=== PATIENT | female | born 1990 | race African-American/Black ===

== ENCOUNTER 2016-05-25 05:50 | Emergency (ER) | payer SELFPAY ==
[~2016-05-25] VITALS: Ht 162.6 cm; Wt 54.7 kg
[~2016-05-25 05:50] MED LIST: PRENTAB26 PO; TRAM-10 PO
[2016-05-25 05:55] VITALS: TEMP 37.3; Ht 162.6 cm; Wt 54.7 kg
[2016-05-25] MEDS ORDERED: METHYLPREDNISOLONE 125 MG VIAL IV STA (06:06)
[2016-05-25] MEDS ORDERED: FAMOTIDINE IV INJ 20 MG in DEXTROSE 5% 100ML 100 ML IV STA (06:06)
[2016-05-25] MEDS ORDERED: DiphenhydrAMINE HCL 50 MG/ML VIAL IV STA (06:06)
[2016-05-25] MEDS ORDERED: FAMOTIDINE 20MG/102 ML D5W ONE (06:28)
[2016-05-25] MEDS ORDERED: CLR10 PO (06:33)
[2016-05-25] MEDS ORDERED: SPR28 PO (06:33)
[2016-05-25] MEDS ORDERED: LANS15CA6 PO (06:33)
[2016-05-25 06:42] LABS: BASO % 0.7 %; BASO ABS # 0.05 K/uL (0-0.2); COMPLETE YES; EOS % 0.5 %; HEMATOCRIT 41.3 % (37-47); IG% 0.1 %; LYMPH % 28.8 %; LYMPH ABS # 2.13 K/uL (1.2-3.4); MEAN CELL VOLUME 92.6 fL (80-100); MEAN CORPUSCULAR HEMOGLOBIN 33.4 pg (25-34); MEAN CORPUSCULAR HGB CONC 36.1 g/dl (32-36); MEAN PLATELET VOLUME 9.6 fL (7.4-10.4); MONO % 6.8 %; NEUT % 63.1 %; PLATELET COUNT 211 K/uL (130-400); RED BLOOD COUNT 4.46 M/uL (4.2-5.4)
[2016-05-25 06:58] LABS: BUN/CREATININE RATIO 14.6 (10-20); CALCIUM 9.2 mg/dl (8.5-10.1); CREATININE 0.72 mg/dl (0.60-1.20); POTASSIUM 3.6 mmol/L (3.5-5.1)
--- NOTE | 2016-05-25 07:13 | EMERGENCY ROOM VISIT NOTE ---
History First contact with patient: 06:00 Chief Complaint: ALLERGIC REACTION Stated Complaint: SWOLLEN LIPS,ALLERGIC REACTION Nursing Triage Summary: Patient reports that she awoke with her lower lip swollen. Angioedema noted. Patient denies taking any new medications or being exposed to any new detergents, etc. Patient also reports sore throat x 2 days. Denies difficulty swallowing or SOB. History of Present Illness The patient is a 25 year old female who presents to the Emergency Room with complaints of left-sided lower lip swelling. The patient reports that she woke up this morning and noticed swelling of the left side of her lower lip. She denies any recent swelling. She states that she has had a sore throat intermittently over the past 2 days. The patient takes tramadol daily. She also takes a PPI and Claritin. She has taken Aleve intermittently recently, but denies any other anti-inflammatory use. She denies any swelling of the tongue or sensation of swelling in the throat. She denies any difficulty swallowing or difficulty breathing. She denies any rashes. She denies any history of similar symptoms. No new exposures to detergents, medications or other environmental exposures. Review of Systems A complete 10-point Review of Systems was discussed with the patient, with pertinent positives and negatives listed in the History of Present Illness. All remaining Review of Systems questions can be considered negative unless otherwise specified. Past Medical/Surgical History Medical Problems: (1) Fibromyalgia (2) Scoliosis Social History Smoking Status: Never Smoker Alcohol Use: occasionally Marital Status: in relationship Occupation Status: [employer] student Current/Historical Medications Scheduled Ethinyl Estrad/Norgestimate (Sprintec 28), 1 TAB PO DAILY Lansoprazole (Prevacid), 15 MG PO DAILY Scheduled PRN Loratadine (Claritin), 10 MG PO DAILY PRN for ALLERGY SX Tramadol (Ultram), 50 MG PO Q6 PRN for Pain Allergies Coded Allergies: Penicillins (Verified Allergy, Mild, HIVES, 05/25/16) Physical Exam Vital Signs Date Time Temp Pulse Resp B/P Pulse Ox O2 Delivery O2 Flow Rate FiO2 05/25/16 05:55 37.3 89 20 128/72 94 Room Air Physical Exam VITALS: Vitals are noted on the nurse's note and reviewed by myself. Vital signs stable. GENERAL: This is a 25-year-old female, in no acute distress, nondiaphoretic, well-developed well-nourished. SKIN: No rashes. EARS: External auditory canals clear, tympanic membranes pearly turner without erythema or effusion bilaterally. EYES: Pupils equal round and reactive to light and accommodation. Conjunctivae without injection, sclerae without icterus. No periorbital edema. MOUTH: There is a moderate amount of edema of the left side of the lower lip. Mucous membranes moist. No tongue swelling. Airway patent. NECK: Supple without nuchal rigidity. No lymphadenopathy. HEART: Regular rate and rhythm without murmurs gallops or rubs. LUNGS: Clear to auscultation bilaterally without wheezes, rales or rhonchi. NEURO: Patient was alert and oriented to person place and time. Medical Decision & Procedures Laboratory Results 05/25/16 06:24 Red Blood Count 4.46, Mean Corpuscular Volume 92.6, Mean Corpuscular Hemoglobin 33.4, Mean Corpuscular Hemoglobin Concent 36.1, Mean Platelet Volume 9.6, Neutrophils (%) (Auto) 63.1, Lymphocytes (%) (Auto) 28.8, Monocytes (%) (Auto) 6.8, Eosinophils (%) (Auto) 0.5, Basophils (%) (Auto) 0.7, Neutrophils # (Auto) 4.67, Lymphocytes # (Auto) 2.13, Monocytes # (Auto) 0.50, Eosinophils # (Auto) 0.04, Basophils # (Auto) 0.05 05/25/16 06:24 Test 05/25/16 06:24 White Blood Count 7.40 K/uL (4.8-10.8) Red Blood Count 4.46 M/uL (4.2-5.4) Hemoglobin 14.9 g/dL (12.0-16.0) Hematocrit 41.3 % (37-47) Mean Corpuscular Volume 92.6 fL (80-100) Mean Corpuscular Hemoglobin 33.4 pg (25-34) Mean Corpuscular Hemoglobin Concent 36.1 g/dl (32-36) Platelet Count 211 K/uL (130-400) Mean Platelet Volume 9.6 fL (7.4-10.4) Neutrophils (%) (Auto) 63.1 % Lymphocytes (%) (Auto) 28.8 % Monocytes (%) (Auto) 6.8 % Eosinophils (%) (Auto) 0.5 % Basophils (%) (Auto) 0.7 % Neutrophils # (Auto) 4.67 K/uL (1.4-6.5) Lymphocytes # (Auto) 2.13 K/uL (1.2-3.4) Monocytes # (Auto) 0.50 K/uL (0.11-0.59) Eosinophils # (Auto) 0.04 K/uL (0-0.5) Basophils # (Auto) 0.05 K/uL (0-0.2) RDW Standard Deviation 42.5 fL (36.4-46.3) RDW Coefficient of Variation 12.5 % (11.5-14.5) Immature Granulocyte % (Auto) 0.1 % Immature Granulocyte # (Auto) 0.01 K/uL (0.00-0.02) Anion Gap 9.0 mmol/L (3-11) Est Creatinine Clear Calc Drug Dose 101.3 ml/min Estimated GFR () 133.0 Estimated GFR (Non- 114.8 BUN/Creatinine Ratio 14.6 (10-20) Calcium Level 9.2 mg/dl (8.5-10.1) Medications Administered Medications (Trade) Dose Ordered Sig/Cecilia Route Start Time Stop Time Status Last Admin Dose Admin Methylprednisolone Sodium Succinate (Solu-Medrol IV) 125 mg NOW STAT IV 05/25/16 06:06 05/25/16 06:07 DC 05/25/16 06:25 125 MG Diphenhydramine HCl (Benadryl Inj) 25 mg NOW STAT IV 05/25/16 06:06 05/25/16 06:07 DC 05/25/16 06:25 25 MG Famotidine (Pepcid 20mg/100 ml) 20 mg STK-MED ONCE .ROUTE 05/25/16 06:28 05/25/16 06:30 DC 05/25/16 06:28 20 MG Medical Decision Differential diagnosis includes angioedema, allergic reaction, among others. The patient was evaluated as above. Labs were drawn and IV access was obtained. The patient was medicated with 125 mg Solu-Medrol, 25 mg Benadryl, and 20 mg famotidine. The patient was reassessed multiple times during their stay in the emergency department and remained in stable condition. The patient is a 25-year-old female who presents today complaining of left lower lip swelling. Labs revealed no leukocytosis, anemia or electrolyte abnormalities. Liver and kidney functions were within normal limits. The patient was treated with steroids, Benadryl and famotidine and had no relief. I feel this is likely angioedema. She has no tongue or throat swelling. She was observed for over one hour and did not develop any concerning symptoms. I do feel she is safe for discharge. I had a discussion with the patient regarding the workup and treatment plan. She will follow-up with her primary care provider. She will return to the emergency department with worsening symptoms. She was informed that she should return immediately if she develops tongue swelling, throat swelling, difficulty swallowing or breathing. Based on the patient's presentation, lab results, and imaging studies, I feel the patient is stable for outpatient treatment. The patient's case was reviewed with Dr. Munoz, ED attending physician, who agreed with my assessment and treatment plan. Discharge instructions were reviewed with the patient. The patient verbalized understanding of my assessment and treatment plan and was discharged home in good condition. Impression Primary Impression: Angioedema of lips Departure Information Dispostion Home / Self-Care Condition GOOD Referrals Lilian Brennan (PCP) Patient Instructions [facility] Additional Instructions Follow up with your primary care provider in 1-2 days for a recheck. Return to the emergency department immediately with worsening swelling of your lips, swelling of her tongue, difficulty swallowing, difficulty breathing or any other new/concerning symptoms. Problem Qualifiers Primary Impression: Angioedema of lips Encounter type: initial encounter Qualified Codes: T78.3XXA - Angioneurotic edema, initial encounter
[2016-05-25 07:35] VITALS: BP 111/59; PULSE 92; O2SAT 100
== END 2016-05-25 07:41 | disposition home or self-care (01) ==
LOC: C.EDB 05:51 → C.EDA 07:41
DX: T78.3XXA Angioneurotic edema, initial encounter (principal); X58.XXXA Exposure to other specified factors, initial encounter; Z79.899 Other long term (current) drug therapy; M79.7 Fibromyalgia

== ENCOUNTER → 2017-02-26 | Outpatient (CLI) | payer BC ==
[~2017-02-26] MED LIST changes: +CLR10 PO; +LANS15CA6 PO; -PRENTAB26 PO; +SPR28 PO
== END | disposition home or self-care (01) ==
LOC: C.PAPS 14:21
PROVIDERS: ATTEND Obstetrics & Gynecology
DX: Z01.419 Encounter for gynecological examination (general) (routine) without abnormal findings (principal)

== ENCOUNTER 2020-12-01 17:48 | Inpatient (IN) ==
[2020-12-01] MEDS ORDERED: LACTATED RINGER'S 1,000 ML IV SCH ×2 (19:30→22:30)
[2020-12-01] MEDS ORDERED: LIDOCAINE 1% LOCAL 20 ML VIAL ONE (19:44)
[2020-12-01] MEDS ORDERED: cefOXitin 2,000 MG in DEXTROSE 5% 50 ML IV ONE (19:45)
[2020-12-01] MEDS ORDERED: CITRIC ACID/SODIUM CITRATE 15 ML UDC PO SCH (19:45)
[2020-12-01] MEDS ORDERED: HYDROmorphone INJ 0.5 MG/0.5 ML SYR IV PRN (20:09)
[2020-12-01] MEDS ORDERED: ePHEDrine sulfate 50 MG/ML AMP IV PRN (20:09)
[2020-12-01] MEDS ORDERED: ONDANSETRON INJ 2 MG/ML 2 ML VIAL IV PRN (20:09)
[2020-12-01] MEDS ORDERED: NALOXONE HCL 1 MG in SODIUM CHLORIDE 0.9% 1000ML 1,000 ML IV PRN (20:09)
[2020-12-01] MEDS ORDERED: MoRPHine SULFATE PF 1 MG/ML 10 ML AMP/VIAL INT SPINAL ONE (20:09)
[2020-12-01] MEDS ORDERED: NALOXONE HCL 0.08 MG in SYRINGE 1.8 ML IV PRN (20:09)
[2020-12-01] MEDS ORDERED: NALOXONE HCL 0.4 MG/1 ML VIAL/CARP IV PRN (20:09)
[2020-12-01] MEDS ORDERED: NALBUPHINE HCL INJ 10 MG/ML AMP IV PRN (20:09)
[2020-12-01] MEDS ORDERED: LACTATED RINGER'S 500 ML IV PRN (20:09)
[2020-12-01] MEDS ORDERED: diphenhydrAMINE 50 MG/ML VIAL IV PRN (20:09)
--- NOTE | 2020-12-01 20:14 | Anesthesiology Consultation ---
Date of Service December 01, 2020 Assessment & Plan (1) Encounter for pre-operative examination: Chart Review Chart Review: Patient NOT seen in Pre Admission Testing and Acceptable Risk for Labor Epidural Consults Requested none ASA [id number] Proposed Anesthesia Anesthesia Type: Labor Epidural and CSE Risk / Benefits Reviewed With: PT / POA / Parent / Guardian, Accepts Plan and Informed Consent Obtained History Surgery Operation Date: 12/01/20 19:25 Proposed Procedures p Section in - Denilson Leslie MD Height/Weight Height: 5 ft 3 in Weight: 86.183 kg Allergies Allergy/AdvReac Type Severity Reaction Status Date / Time Penicillins Allergy Mild HIVES Verified 05/25/16 06:32 Medications Home Medications Medication Instructions Recorded Confirmed Last Taken acetone (urine) test (Ketone Urine #50 ea 07/19/20 Unknown Test) blood sugar diagnostic (OneTouch #150 ea 07/19/20 Unknown Verio test strips) blood-glucose meter (OneTouch #1 ea 07/19/20 Unknown Verio Flex meter) lancets 33 gauge (OneTouch Delica #150 ea 07/19/20 Unknown Plus Lancet) duloxetine 30 mg capsule,delayed 30 mg PO DAILY 11/24/20 12/01/20 12/01/20 09:00 release (Cymbalta) insulin NPH isoph U-100 human 100 40 unit SUBCUT QPM 11/24/20 12/01/20 11/30/20 22:30 unit/mL (3 mL) subcutaneous pen (Novolin N Flexpen) insulin aspart U-100 100 unit/mL 20 unit SUBCUT TID 11/24/20 12/01/20 12/01/20 13:00 (3 mL) subcutaneous pen (Novolog Flexpen U-100 Insulin aspart) vits no.124-ferrous fum 1 tab PO DAILY 11/24/20 12/01/20 12/01/20 09:00 27 mg iron-folic acid 800 mcg tablet ( Vitamin) Active Medications Generic Name Dose Route Start Last Admin Trade Name Freq PRN Reason Stop Dose Admin Cefoxitin Sodium 2,000 mg/ 60 mls @ 100 mls/hr 12/01/20 19:45 12/01/20 19:50 Dextrose IV 12/01/20 20:20 100 mls/hr ONE ONE Administration Lactated Ringer's 1,000 mls @ 999 mls/hr 12/01/20 19:30 12/01/20 19:30 Lr IV 12/01/20 20:30 999 mls/hr .Q1H1M BEVERLY Administration NPO Date Last Intake of Fluids: 12/01/20 Time Last Intake of Fluids: 19:00 Date Last Intake of Solids: 12/01/20 Time Last Intake of Solids: 14:00 Last Intake of Solids Comment: sandwich Past Medical History Medical History (Updated 12/01/20 @ 20:16 by Valentin Mahoney MD) Fibromyalgia Gestational hypertension Insulin controlled gestational diabetes mellitus (GDM) during Exercise / Class Metabolic Activity II 4-5 Yardwork/Stairs/Walk up hill Past Family History Family History Other No history of previous surgery No known health problems Past Surgical History Surgical History No history of previous surgery Past Anesthesia History No Hx of Anesthesia Complications and No Family Hx of Anesthesia Complications Social History Smoking Status: Never smoker Hx Alcohol Use: No Hx Substance Use: No substance use type: does not use Review of Systems no chest pain or sob Physical Exam Vital Signs Last Vital Signs Temp 36.9 C 12/01/20 17:56 Pulse 105 H 12/01/20 20:13 Resp 20 12/01/20 17:56 BP 158/85 H 12/01/20 18:09 Pulse Ox 98 12/01/20 20:13 ENMT Mouth: no TMJ abnormality Thyromental Distance: > or= 3.5 Finger Breadths Mallampati Class: II Neck normal visual inspection Respiratory normal respiratory effort Auscultation: lungs clear to auscultation bilaterally Cardiovascular Rate/Rhythm: regular rate and regular rhythm Musculoskeletal Spine: normal cervical ROM Neurologic moves all extremities Psychiatric Orientation: alert and oriented x 3 Testing Laboratory Results 12/01/20 19:57 POC Glucose 72
[2020-12-01] MEDS ORDERED: NO NARCOTICS OR SEDATIVES SCH (20:15)
[2020-12-01] MEDS ORDERED: SODIUM CHLORIDE 0.9% 1000ML 1,000 ML IV SCH (20:15)
[2020-12-01] MEDS ORDERED: LIDOCAINE/EPINEPHRINE 1% 20 ML VIAL ONE (20:20)
[2020-12-01 20:21] LABS: Basophils # (auto) 0.03 K/uL (0-0.2); Basophils % (auto) 0.3 %; Eosinophils # (auto) 0.04 K/uL (0-0.5); Eosinophils % (auto) 0.4 %; Hematocrit (blood only) 29.7 % (37-47); Hemoglobin 9.4 g/dL (12.0-16.0); Immature Granulocytes # (auto) 0.17 K/uL (0.00-0.02); Immature Granulocytes % (auto) 1.6 %; Lymphocytes # (auto) 3.12 K/uL (1.2-3.4); Lymphocytes % (auto) 30.2 %; Mean Corpuscular Hemoglobin 24.8 pg (25-34); Mean Corpuscular Volume 78.4 fL (80-100); Monocytes # (auto) 0.61 K/uL (0.11-0.59); Monocytes % (auto) 5.9 %; Neutrophils # (auto) 6.37 K/uL (1.4-6.5); Neutrophils % (auto) 61.6 %; Platelet Count 212 K/uL (130-400); RDW Coefficient of Variation 17.3 % (11.5-14.5); RDW Standard Deviation 49.4 fL (36.4-46.3); Red Blood Count 3.79 M/uL (4.2-5.4); White Blood Count 10.34 K/uL (4.8-10.8)
[2020-12-01 20:22] LABS: Mean Corpuscular Hgb Conc 31.6 g/dL (32-36)
[2020-12-01] MEDS ORDERED: OXYTOCIN 10 UNITS/ML VIAL ONE ×3 (20:23→21:19)
[2020-12-01] MEDS ORDERED: fentaNYL citrate 100 MCG/2 ML VIAL ONE (20:24)
[2020-12-01] MEDS ORDERED: MoRPHine SULFATE PF 1 MG/ML 10 ML AMP/VIAL ONE (20:24)
--- NOTE | 2020-12-01 20:29 | History and Physical Report ---
DATE OF ADMISSION 12/01/2020 CHIEF COMPLAINT: Intrauterine at 37 weeks' gestation, hypertension, diabetes, desire for pe rmanent sterilization. HISTORY OF PRESENT ILLNESS: The patient is a 30-year-old 4, para 2. She has had one spontan eous AB. Present has been complicated by insulin-dependent diabetes, which she has had sin ce about July. She is getting 4 injections a day. Her prior 2 pregnancies were not complicated by gestational diabetes. Her first delivery was in 2009 at 38 weeks. She had a girl, 5 pounds 6 ounces , vaginal delivery with a 12-hour labor and a relatively short push. In 2014, she had another girl a t 37 weeks' gestation, 7 pounds 7 ounces, 12-hour labor, relatively short push. Present ortega d 3 issues. She has been hypertensive for at least the last 2 weeks with diastolics above 90, someti mes as high as 100 and systolics in the 150s documented on numerous times. The other issue that she had is she became an insulin-dependent diabetic, on insulin since July. When she underwent a scan at about 35 weeks' gestation, she was noted to have polyhydramnios and diabetic weight distribution ch anges with an abdominal circumference, which revealed a gestational age 4 weeks ahead of the head cir cumference. About a week or two later, the ultrasound was repeated at the hospital and at this time, her DELORES was in the normal range of 17, but she still had an abdominal to head ratio difference of 3+ weeks. Also, the patient requests permanent sterilization. She has been made aware of the procedure of tubal ligation including the fact that this procedure is intended to result in permanent and irre versible sterility, and she is presently being scheduled for a primary low segment section a long with bilateral tubal ligation. PAST SURGICAL HISTORY: She has had no previous surgery. MEDICATIONS: She is on no medications and her only medication was insulin when she became diabetic d uring this . ALLERGIES: SHE STATES SHE IS ALLERGIC TO PENICILLIN, WHICH GAVE HER A RASH WHEN SHE WAS A CHILD. SOCIAL HISTORY: No smoking, no excessive alcohol intake. Works as a housewife. FAMILY HISTORY: She has 2 girls in good health. Mom at 65, has diabetes. Father at age 50 of h eart failure. One brother and one sister in relatively good health. REVIEW OF SYSTEMS: HEAD: No symptoms of frequent or severe headaches. EYES: No symptoms of blurred vision or double vision. EARS: No symptoms of frequent ear infection or difficulty hearing. NOSE: No symptoms of frequent nosebleeds or difficulty breathing through her nose. THROAT: No symptoms of frequent or severe sore throat or difficulty swallowing. RESPIRATORY SYSTEM: No history of asthma, chest pain, or shortness of breath. PHYSICAL EXAMINATION: GENERAL: A well-developed, well-nourished 30-year-old black female, alert and oriented x3, cooperati ve, in no acute distress, appeared her stated age. EYES: Conjunctivae are pink. Sclerae white, no evidence of jaundice. EARS: Had normal light reflex bilaterally. HEART: Had regular rhythm. S1 and S2 are normal. LUNGS: Clear to auscultation and percussion. BREASTS: Normal. ABDOMEN: Revealed a rather large protuberant abdomen, which was larger than expected for a term pregn roslyn, much larger than for a 37 weeks' . PELVIC: Revealed a vertex presentation, floating. Cervix was posterior, about 1-2 cm. There was a s mall amount of bloody show. MUSCULOSKELETAL: Revealed no calf tenderness. IMPRESSIONS OF THIS CASE: Desire for permanent sterilization, hypertension associated with , gestational diabetes, abnormal weight distribution identified on ultrasound secondary to diabetic ch anges and the other is active labor. Job ID: [id number]
[2020-12-01] MEDS ORDERED: PHENYLEPHRINE 100MCG/ML 5ML SYR ONE (21:12)
[2020-12-01] MEDS ORDERED: SENNA 8.6 MG TAB PO PRN (22:21)
[2020-12-01] MEDS ORDERED: SUPERCREAM 0.870% 15 GM JAR EXT PRN (22:21)
[2020-12-01] MEDS ORDERED: HYDROCORTISONE ACETATE 25 MG SUPP PR PRN (22:21)
[2020-12-01] MEDS ORDERED: DIPHTHERIA/TETANUS/PERTUSSIS 0.5 ML SYR/VIAL IM ONE (22:21)
[2020-12-01] MEDS ORDERED: BENZOCAINE 20% AER SPR 82.5 GM CAN EXT PRN (22:21)
[2020-12-01] MEDS ORDERED: MAGNESIUM HYDROXIDE SUSP 30 ML UDC PO PRN (22:21)
--- NOTE | 2020-12-01 22:21 | Post Operative Brief Note ---
Immediate Post Op Note v1 Date of Surgery December 01, 2020 Pre & Post Diagnosis Operation Date: 12/01/20 19:25 Pre-Op Diagnosis: Gestational Diabetic on insulin HTN Polyhydraminos Two serial Ultrasounds patient in labor Post-Op Diagnosis: Gestational Diabetic on insulin HTN Polyhydraminos Two serial Ultrasounds patient in labor I identified the patient and participated in the time-out.: Yes Procedure Operation Date: 12/01/20 19:25 Actual Procedures p Section in LD with live male child born at 2117(Bilateral) - Denilson Leslie MD Surgeon Denilson Leslie MD Pulling Machine Operator none Estimated Blood Loss 700 Findings Consistent with Post-Op Diagnosis meconium Drains Rodriguez Catheter (Rodriguez draining clear and yellow throughout case ) Anesthesia Type Spinal Disposition Disposition: Recovery Room
[2020-12-01] MEDS ORDERED: OXYTOCIN 10 UNITS/ML VIAL IM ONE (22:40)
[2020-12-01] MEDS: KETOROLAC 30 MG/ML VIAL IV PRN (22:45)
[2020-12-01] MEDS ORDERED: LABETALOL HCL 100 MG TAB PO ONE (23:24)
[2020-12-01] MEDS: OXYTOCIN 20 UNITS in LACTATED RINGER'S 1,000 ML IV SCH (23:43)
--- NOTE | 2020-12-02 00:56 | Anesthesiology Progress Note ---
Date of Service December 02, 2020 Anesthesia Post Procedure Vital Signs Vital Signs: Temp Pulse Resp BP Pulse Ox 12/02/20 00:33 105 H 132/82 12/02/20 00:32 36.7 C 16 12/02/20 00:31 108 H 99 12/02/20 00:26 86 96 12/02/20 00:23 93 H 134/90 12/02/20 00:21 86 98 12/02/20 00:16 94 H 98 12/02/20 00:13 81 129/88 12/02/20 00:11 99 H 100 12/02/20 00:06 96 H 100 12/02/20 00:03 86 151/98 H 12/02/20 00:02 18 12/02/20 00:01 86 99 12/01/20 23:56 92 H 100 12/01/20 23:53 80 152/98 H 12/01/20 23:51 84 100 12/01/20 23:46 93 H 100 12/01/20 23:43 83 150/93 H 12/01/20 23:41 94 H 100 12/01/20 23:36 84 100 12/01/20 23:33 81 152/95 H 12/01/20 23:32 18 12/01/20 23:31 82 100 12/01/20 23:26 103 H 99 12/01/20 23:23 82 155/98 H 12/01/20 23:22 18 12/01/20 23:21 107 H 100 12/01/20 23:16 103 H 99 12/01/20 23:13 81 153/98 H 12/01/20 23:12 18 12/01/20 23:11 95 H 99 12/01/20 23:06 84 99 12/01/20 23:04 85 154/83 H 12/01/20 23:02 16 12/01/20 23:01 86 99 12/01/20 22:56 106 H 98 12/01/20 22:53 106 H 150/78 H 12/01/20 22:52 18 12/01/20 22:51 111 H 98 12/01/20 22:48 95 H 93 12/01/20 22:46 104 H 146/80 H 100 12/01/20 22:43 102 H 166/95 H 12/01/20 22:42 18 12/01/20 22:41 106 H 100 12/01/20 22:38 113 H 89 L 12/01/20 22:36 111 H 100 12/01/20 22:32 36.4 C L 114 H 16 136/80 12/01/20 22:31 112 H 100 12/01/20 22:27 107 H 136/82 12/01/20 22:26 111 H 100 12/01/20 20:33 108 H 98 12/01/20 20:28 113 H 99 12/01/20 20:23 108 H 99 12/01/20 20:18 112 H 99 12/01/20 20:13 105 H 98 12/01/20 20:08 119 H 98 12/01/20 20:03 120 H 98 12/01/20 18:09 103 H 158/85 H 12/01/20 17:56 36.9 C 93 H 20 133/99 Pain Intensity Upper Back: Pain Intensity: 0 Transfer of Care Handoff Completed per policy Notes Mental Status: alert / awake / arousable Patient Amnestic to Procedure: Yes Nausea / Vomiting: adequately controlled Pain: adequately controlled Airway Patency, RR, SpO2: stable & adequate BP & HR: stable & adequate Hydration State: stable & adequate Neuraxial Anesthesia: was administered and sensory block is resolving Anesthetic Complications: no major complications apparent and Pt Satisfied with anesthetic care
--- NOTE | 2020-12-02 00:56 | Operative Report (OR) ---
DATE OF PROCEDURE: 12/01/2020. This is an operative notation of a primary low segment section, bilateral tubal ligation. INDICATIONS FOR SURGERY: Labor, insulin-dependent diabetes, desire for permanent sterilization, and macrosomic changes to the infant secondary to diabetes. PREOPERATIVE DIAGNOSES: Intrauterine , 37 weeks gestation, labor, hypertension, insulin-dep endent diabetes, and diabetic changes on ultrasound to the . POSTOPERATIVE DIAGNOSES: Intrauterine , 37 weeks gestation, labor, hypertension, insulin-de pendent diabetes, and diabetic changes on ultrasound to the infant, delivered a live male , mec onium-stained amniotic fluid. Typical presentation of a diabetic-appearing . PROCEDURE: Primary low segment section, bilateral tubal ligation. SURGEON: Berny Leslie MD DERRICK BOAT RUNNER: None. ESTIMATED BLOOD LOSS: 700 mL. ANESTHESIA: Spinal. OPERATIVE FINDINGS AND PROCEDURE: The patient was brought to the OR table, correctly identified by a rmband and conversation. Spinal anesthesia was administered. Lower abdomen was painted with an alco hol-based sterilizing solution. Compression stockings were applied. Rodriguez catheter was inserted in the bladder, connected to gravity drainage. Lower uterine segment was painted with an alcohol-based sterilizing solution and draped in the usual sterile fashion. Timeout was performed. Then a Pfannen stiel incision was made and carried down to the anterior fascia by sharp dissection. Hemostasis was secured by electrocauterization. Fascia was incised transversely, from the underlying musc le by blunt and sharp dissection. Recti muscles were in the midline exposing the peritoneu m which was carefully raised and entered. A retractor was placed into the abdomen and exposed the lo wer uterine segment. An incision was made above the vesicouterine fold. Bladder was undermined blun tly, pushed out of the operative field. Lower uterine segment was scored with a knife and entered wi th scissors. Meconium stained amniotic fluid could be seen coming through the incision. Incision wa s then widened laterally bluntly. Vectis retractor was applied to the head. With fundal pressure, i nfant was delivered. Cord was stripped and then clamped and cut. Cord blood was taken. Placenta wa s removed manually. Uterus, tubes, and ovaries were brought out through the incision. The uterine c avity was cleansed with a clean sponge. A 10 units of Pitocin was injected directly into the myometr ium. The myometrial defect was then closed in layers. Deep layer was closed with continuous heavy d uty chromic layer and then the fascial layer was approximated over this with a continuous interlockin g suture of heavy Vicryl. About 3 interrupted [id number] sutures of Vicryl were also used to uzma lster the approximation and to complete the hemostatic process. Then the peritoneal edges were mayela red with a continuous chromic gut suture to restore the integrity of the vesicouterine fold. Attenti on was now turned to the tubes. Each fallopian tube was grasped in the mid portion and ligated proxi shanell and distally with a plain tie. The mid portion of the tubes between the two ties was then inje cted with local with epinephrine. The two leaves of the broad ligament were out. The tube was dissected out between the two leaves of the broad ligament, cut, and then the broad ligament was approximated front to back, burying the posterior stump and exteriorizing the distal stump. Followi ng this, pelvis was cleansed of all blood clots and debris. Uterus, tubes, and ovaries were inserted into the incision. Hemostasis was checked for and found to be excellent. Peritoneum was closed wit h a continuous mattress suture of chromic catgut. Recti muscles were approximated with interrupted f [id number] suture chromic catgut. Fascia was closed with continuous interlocking suture of Vicry l on each side tied in the midline. Subcutaneous was approximated with running plain. The skin edge s were approximated with staple clips. Job ID: [id number]
[2020-12-02] MEDS: KETOROLAC 30 MG/ML VIAL IV PRN ×2 (04:34→10:39)
[2020-12-02 06:50] LABS: Basophils # (auto) 0.02 K/uL (0-0.2); Basophils % (auto) 0.2 %; Eosinophils # (auto) 0.05 K/uL (0-0.5); Eosinophils % (auto) 0.4 %; Hematocrit (blood only) 26.9 % (37-47); Hemoglobin 8.4 g/dL (12.0-16.0); Immature Granulocytes # (auto) 0.08 K/uL (0.00-0.02); Immature Granulocytes % (auto) 0.6 %; Lymphocytes # (auto) 3.13 K/uL (1.2-3.4); Lymphocytes % (auto) 23.8 %; Mean Corpuscular Hemoglobin 24.6 pg (25-34); Mean Corpuscular Hgb Conc 31.2 g/dL (32-36); Mean Corpuscular Volume 78.7 fL (80-100); Mean Platelet Volume 9.8 fL (7.4-10.4); Monocytes # (auto) 0.68 K/uL (0.11-0.59); Monocytes % (auto) 5.2 %; Neutrophils # (auto) 9.21 K/uL (1.4-6.5); Neutrophils % (auto) 69.8 %; Nucleated RBC # (auto) 0.04 K/uL (0-0); Nucleated RBC % (auto) 0.3 %; Platelet Count 190 K/uL (130-400); RDW Coefficient of Variation 17.4 % (11.5-14.5); RDW Standard Deviation 49.4 fL (36.4-46.3); Red Blood Count 3.42 M/uL (4.2-5.4); White Blood Count 13.17 K/uL (4.8-10.8)
[2020-12-02] MEDS: SIMETHICONE 80 MG CHEW PO SCH ×4 (07:24→21:49)
[2020-12-02] MEDS: PRENATAL VITAMIN 1 TAB PO SCH (07:24)
[2020-12-02] MEDS: FERROUS SULFATE 325 MG TAB PO SCH (07:24)
[2020-12-02] MEDS: DOCUSATE SODIUM 100 MG CAP PO SCH ×2 (07:24→21:49)
[2020-12-02] MEDS: OXYTOCIN 20 UNITS in LACTATED RINGER'S 1,000 ML IV SCH (08:01)
--- NOTE | 2020-12-02 08:46 | Obstetrical Progress Note ---
Date of Service December 02, 2020 Assessment & Plan Admission and Anticipated Discharge Date Admission Date: December 01, 2020 Subjective abdomen soft and non tender bowel sounds present passing flatus bandage is clean and dry no calf tenderness vaginal bleeing scant hgb 8.4 Results & Data ([facility]) Vital Signs (Past 12 Hours) Vital Signs Temp Pulse Pulse Resp BP BP Pulse Ox 12/02/20 07:30 36.6 C 100 H 18 126/84 97 12/02/20 06:00 16 98 12/02/20 05:00 16 97 12/02/20 04:40 36.8 C 100 H 16 142/89 H 96 12/02/20 04:00 16 96 12/02/20 03:00 16 96 12/02/20 02:00 16 96 12/02/20 01:00 16 96 12/02/20 00:45 36.7 C 105 H 16 132/82 99 12/02/20 00:33 105 H 132/82 12/02/20 00:32 36.7 C 16 12/02/20 00:31 108 H 99 12/02/20 00:26 86 96 12/02/20 00:23 93 H 134/90 12/02/20 00:21 86 98 12/02/20 00:16 94 H 98 12/02/20 00:13 81 129/88 12/02/20 00:11 99 H 100 12/02/20 00:06 96 H 100 12/02/20 00:03 86 151/98 H 12/02/20 00:02 18 12/02/20 00:01 86 99 12/01/20 23:56 92 H 100 12/01/20 23:53 80 152/98 H 12/01/20 23:51 84 100 12/01/20 23:46 93 H 100 12/01/20 23:43 83 150/93 H 12/01/20 23:41 94 H 100 12/01/20 23:36 84 100 12/01/20 23:33 81 152/95 H 12/01/20 23:32 18 12/01/20 23:31 82 100 12/01/20 23:26 103 H 99 12/01/20 23:23 82 155/98 H 12/01/20 23:22 18 12/01/20 23:21 107 H 100 12/01/20 23:16 103 H 99 12/01/20 23:13 81 153/98 H 12/01/20 23:12 18 12/01/20 23:11 95 H 99 12/01/20 23:06 84 99 12/01/20 23:04 85 154/83 H 12/01/20 23:02 16 12/01/20 23:01 86 99 12/01/20 22:56 106 H 98 12/01/20 22:53 106 H 150/78 H 12/01/20 22:52 18 12/01/20 22:51 111 H 98 12/01/20 22:48 95 H 93 12/01/20 22:46 104 H 146/80 H 100 12/01/20 22:43 102 H 166/95 H 12/01/20 22:42 18 12/01/20 22:41 106 H 100 12/01/20 22:38 113 H 89 L 12/01/20 22:36 111 H 100 12/01/20 22:32 36.4 C L 114 H 16 136/80 12/01/20 22:31 112 H 100 12/01/20 22:27 107 H 136/82 12/01/20 22:26 111 H 100
[2020-12-02] MEDS: LABETALOL HCL 100 MG TAB PO SCH ×3 (08:48→21:51)
--- NOTE | 2020-12-02 09:59 | Anesthesiology Progress Note ---
Date of Service December 02, 2020 Anesthesia Post Procedure Vital Signs Vital Signs: Temp Pulse Pulse Resp BP BP Pulse Ox 12/02/20 08:30 18 97 12/02/20 07:30 36.6 C 100 H 18 126/84 97 12/02/20 06:00 16 98 12/02/20 05:00 16 97 12/02/20 04:40 36.8 C 100 H 16 142/89 H 96 12/02/20 04:00 16 96 12/02/20 03:00 16 96 12/02/20 02:00 16 96 12/02/20 01:00 16 96 12/02/20 00:45 36.7 C 105 H 16 132/82 99 12/02/20 00:33 105 H 132/82 12/02/20 00:32 36.7 C 16 12/02/20 00:31 108 H 99 12/02/20 00:26 86 96 12/02/20 00:23 93 H 134/90 12/02/20 00:21 86 98 12/02/20 00:16 94 H 98 12/02/20 00:13 81 129/88 12/02/20 00:11 99 H 100 12/02/20 00:06 96 H 100 12/02/20 00:03 86 151/98 H 12/02/20 00:02 18 12/02/20 00:01 86 99 12/01/20 23:56 92 H 100 12/01/20 23:53 80 152/98 H 12/01/20 23:51 84 100 12/01/20 23:46 93 H 100 12/01/20 23:43 83 150/93 H 12/01/20 23:41 94 H 100 12/01/20 23:36 84 100 12/01/20 23:33 81 152/95 H 12/01/20 23:32 18 12/01/20 23:31 82 100 12/01/20 23:26 103 H 99 12/01/20 23:23 82 155/98 H 12/01/20 23:22 18 12/01/20 23:21 107 H 100 12/01/20 23:16 103 H 99 12/01/20 23:13 81 153/98 H 12/01/20 23:12 18 12/01/20 23:11 95 H 99 12/01/20 23:06 84 99 08/11/21 23:04 85 154/83 H 12/01/20 23:02 16 12/01/20 23:01 86 99 12/01/20 22:56 106 H 98 12/01/20 22:53 106 H 150/78 H 12/01/20 22:52 18 12/01/20 22:51 111 H 98 12/01/20 22:48 95 H 93 12/01/20 22:46 104 H 146/80 H 100 12/01/20 22:43 102 H 166/95 H 12/01/20 22:42 18 12/01/20 22:41 106 H 100 12/01/20 22:38 113 H 89 L 12/01/20 22:36 111 H 100 12/01/20 22:32 36.4 C L 114 H 16 136/80 12/01/20 22:31 112 H 100 12/01/20 22:27 107 H 136/82 12/01/20 22:26 111 H 100 12/01/20 20:33 108 H 98 12/01/20 20:28 113 H 99 12/01/20 20:23 108 H 99 12/01/20 20:18 112 H 99 12/01/20 20:13 105 H 98 12/01/20 20:08 119 H 98 12/01/20 20:03 120 H 98 12/01/20 18:09 103 H 158/85 H 12/01/20 17:56 36.9 C 93 H 20 133/99 Pain Intensity Upper Back: Pain Intensity: 3 Transfer of Care Handoff Completed per policy Notes Mental Status: alert / awake / arousable Patient Amnestic to Procedure: Yes Nausea / Vomiting: adequately controlled Pain: adequately controlled Airway Patency, RR, SpO2: stable & adequate BP & HR: stable & adequate Hydration State: stable & adequate Neuraxial Anesthesia: was administered and sensory block resolved Anesthetic Complications: no major complications apparent and Pt Satisfied with anesthetic care
[2020-12-02] MEDS ORDERED: DC INTRASPINAL MORPHINE ONE (14:09)
[2020-12-02] MEDS ORDERED: MEPERIDINE HCL 50 MG/ML CARP IV PRN (14:10)
[2020-12-02] MEDS ORDERED: ONDANSETRON INJ 2 MG/ML 2 ML VIAL IV PRN (14:10)
[2020-12-02] MEDS ORDERED: KETOROLAC 30 MG/ML VIAL IV PRN (14:10)
[2020-12-02] MEDS ORDERED: PROMETHAZINE HCL 25 MG in SODIUM CHLORIDE 0.9% 50 ML IV PRN (14:10)
[2020-12-02] MEDS ORDERED: ZOLPIDEM TARTRATE 5 MG TAB PO PRN (14:10)
[2020-12-02] MEDS ORDERED: diphenhydrAMINE Capsule 25 MG CAP PO PRN (14:10)
[2020-12-02] MEDS ORDERED: diphenhydrAMINE 50 MG/ML VIAL IV PRN (14:10)
[2020-12-02] MEDS: oxyCODONE/ACETAMINOPHEN 5mg/325mg TAB PO PRN ×2 (17:15→21:50)
[2020-12-02] MEDS: IBUPROFEN 600 MG TAB PO PRN ×2 (17:16→21:50)
[2020-12-02] MEDS ORDERED: bisacodyL 5 MG TABEC PO SCH (20:00)
[2020-12-03] MEDS: oxyCODONE/ACETAMINOPHEN 5mg/325mg TAB PO PRN ×3 (01:16→12:38)
[2020-12-03] MEDS: IBUPROFEN 600 MG TAB PO PRN ×3 (01:16→12:37)
[2020-12-03 06:41] LABS: Hematocrit (blood only) 25.1 % (37-47); Hemoglobin 7.8 g/dL (12.0-16.0)
[2020-12-03] MEDS: LABETALOL HCL 100 MG TAB PO SCH (07:50)
[2020-12-03] MEDS: FERROUS SULFATE 325 MG TAB PO SCH (07:50)
[2020-12-03] MEDS: DOCUSATE SODIUM 100 MG CAP PO SCH (07:50)
[2020-12-03] MEDS: SIMETHICONE 80 MG CHEW PO SCH (07:51)
[2020-12-03] MEDS: PRENATAL VITAMIN 1 TAB PO SCH (07:51)
--- NOTE | 2020-12-03 09:18 | Obstetrical Progress Note ---
Date of Service December 03, 2020 Assessment & Plan Admission and Anticipated Discharge Date Admission Date: December 01, 2020 Subjective abdomen soft and non tender incision is clean and dry no calf tenderness ambulating well vaginal bleeding scant hgb 7.8 Results & Data ([facility]) Vital Signs (Past 12 Hours) Vital Signs Temp Pulse Resp BP Pulse Ox 12/02/20 23:30 37.0 C 107 H 16 130/79 98
[2020-12-03] MEDS ORDERED: DULoxetine HCL 30 MG CAP PO SCH (09:30)
--- NOTE | 2020-12-03 09:45 | Discharge Summary (DS) ---
DATE OF ADMISSION: 12/01/2020 DATE OF DISCHARGE: 12/03/2020 HOSPITAL COURSE: This is a 30-year-old black female. She was admitted at 37 weeks' gestation with c omplaints of bloody show and contractions. Her had multiple complications. She has been d iabetic for months, on 4 injections of insulin a day. She has also been hypertensive for at least 2 weeks prior to her admission for delivery. Her prior pregnancies were vaginal deliveries; however, b oth of those were relatively small children, she did not have diabetes. Beside the hypertension and insulin-dependent diabetes, she also had documented diabetic weight changes on ultrasound. She had 2 ultrasounds, which diagnosed this. Her first one was done about 3 weeks prior to admission, at which time she had polyhydramnios with an DELORES of 29 and an abdominal circumference that was 1 month ahead of the head circumference. This was done in the office. About 10 days later, she had another ultraso und done at the hospital, at this time her DELORES was 17 and her abdominal circumference was 3 weeks plu s ahead of the head circumference. So on admission, she was diagnosed with insulin-dependent diabete s and with an infant with diabetic weight changes and suspected to be large. At the time of section, she was 37 weeks 1 day dated with a first trimester ultrasound and she was diagnosed with bloody jodi w and contractions. She was taken to the OR where she underwent primary low segment section along with bilateral tubal ligation. She delivered a live male , weight was 8 pounds 13 ounce s. Her preoperative hemoglobin was 9.4. At the time of discharge, her hemoglobin was 7.8. Postopera tively, she did well. Her bowel sounds returned within 24 hours. She ambulated well, she tolerated a diet well at the time of discharge, she was passing gas. Her incision was clean and dry. She was given prescriptions for Percocet and Motrin and told to return to the office for removal of [place]. Job ID: [id number]
[2020-12-03 11:54] LABS: Hematocrit (blood only) 24.6 % (37-47); Hemoglobin 7.8 g/dL (12.0-16.0)
[2020-12-03] MEDS ORDERED: bisacodyL 10 MG SUPP PR PRN (22:21)
== END 2020-12-03 13:45 | disposition home or self-care (01) | DRG 785 ==
LOC: OPB 17:48 → 4S1 17:52 → 4S2 12-02 00:52
PROC: M.PPTLD (2020-12-01 19:25)